=== PATIENT | female | born 1990 | race Caucasian/White ===

== ENCOUNTER 2017-05-15 02:18 | Inpatient (IN) | payer OTHER ==
[~2017-05-15] VITALS: Ht 175.3 cm; Wt 127.7 kg
[2017-05-15] MEDS ORDERED: LACTATED RINGER'S 1000ML 1,000 ML IV PRN (02:46)
[2017-05-15] MEDS ORDERED: LACTATED RINGER'S 1000ML 1,000 ML IV SCH ×2 (02:46→09:19)
--- NOTE | 2017-05-15 03:04 | Progress Note ---
Progress Note Date of Service May 15, 2017. Progress Note Addendum: Pt has no care and therefore GBS status unknown Pt reports allergy to PCN- she repotrs hx hives but no hx of anaphylactic rxn Discussed GBS prophylaxis with Ancef and the risk of 4-10% cross reactivity Pt is wiling to try Ancef
[2017-05-15 03:19] LABS: MEAN CELL VOLUME 93.8 fL (80-100); MEAN CORPUSCULAR HEMOGLOBIN 31.4 pg (25-34); MEAN CORPUSCULAR HGB CONC 33.4 g/dl (32-36); MEAN PLATELET VOLUME 10.9 fL (7.4-10.4); PLATELET COUNT 209 K/uL (130-400); RED BLOOD COUNT 4.05 M/uL (4.2-5.4)
[2017-05-15] MEDS: CEFAZOLIN IV 1,000 MG in DEXTROSE 5% 50ML 50 ML IV PRN ×2 (03:28→10:32)
[2017-05-15 03:44] LABS: ALT/SGPT 53 U/L (12-78); AST/SGOT 30 U/L (15-37); BLOOD UREA NITROGEN 5 mg/dl (7-18); BUN/CREATININE RATIO 8.3 (10-20); CALCIUM 8.2 mg/dl (8.5-10.1); CARBON DIOXIDE 22 mmol/L (21-32); CHLORIDE 108 mmol/L (98-107); CREATININE 0.62 mg/dl (0.60-1.20); GLUCOSE 97 mg/dl (70-99); POTASSIUM 3.7 mmol/L (3.5-5.1); SODIUM 139 mmol/L (136-145)
[2017-05-15 03:47] LABS: ALB/GLOB RATIO 0.7 (0.9-2); ALKALINE PHOSPHATASE 206 U/L (45-117)
[2017-05-15 03:50] VITALS: Ht 175.3 cm; Wt 127.7 kg
[2017-05-15] MEDS ORDERED: FENTANYL 2MCG/ML ROPIV 1.25MG/ML 100ML BAG EPI ONE (04:14)
[2017-05-15] MEDS ORDERED: FENTANYL CITRATE INJ 50 MCG/1 ML 2 ML VIAL ONE (04:14)
[2017-05-15] MEDS ORDERED: BUPIVACAINE 0.25% 30 ML VIAL ONE (04:14)
[2017-05-15] MEDS ORDERED: EpHEDrine SULFATE INJ 50 MG/ML AMP ONE (04:14)
[2017-05-15 04:17] LABS: BENZODIAZEPINE, URINE NEG (NEG); COCAINE,URINE NEG (NEG); PHENCYCLIDINE, URINE NEG (NEG)
[2017-05-15] MEDS ORDERED: LACTATED RINGER'S 1000ML 500 ML IV PRN (05:07)
[2017-05-15] MEDS ORDERED: NALOXONE HCL INJ 1 MG in SODIUM CHLORIDE 0.9% 1000ML 1,000 ML IV PRN (05:07)
[2017-05-15] MEDS ORDERED: NALBUPHINE HCL INJ 10 MG/ML AMP IV PRN (05:15)
[2017-05-15] MEDS ORDERED: FENTANYL 2MCG/ML ROPIV 1.25MG/ML 100ML BAG EPI PRN (05:15)
[2017-05-15] MEDS ORDERED: ONDANSETRON INJ 2 MG/ML 2 ML VIAL IV PRN (05:15)
[2017-05-15] MEDS ORDERED: EpHEDrine SULFATE INJ 50 MG/ML AMP IV PRN (05:15)
[2017-05-15] MEDS ORDERED: DiphenhydrAMINE HCL 50 MG/ML VIAL IV PRN (05:15)
[2017-05-15] MEDS ORDERED: NALOXONE HCL INJ 0.4 MG/1 ML VIAL/CARP IV PRN (05:15)
[2017-05-15] MEDS ORDERED: PROMETHAZINE HCL INJ 6.25 MG in SODIUM CHLORIDE 0.9% 50ML 50 ML IV PRN (05:15)
--- NOTE | 2017-05-15 05:22 | HISTORY & PHYSICAL EXAMINATION ---
DATE OF ADMISSION: 05/15/2017 HISTORY OF PRESENT ILLNESS: The patient is a 26-year-old G2, P1, who presented to the Emergency Room with complaints of rupture of membranes at 12; 00 midnight The patient denies knowing she was ever . She saw her PCP last week for shortness of breath during which she then was found to be . She therefore does not know her last menstrual period or gestation in . When she presented to the Emergency Room today; however, she did complain of greenish clear fluid discharge from the vagina, then was sent to labor and delivery, where on the arrival to labor and delivery, she had no shortness of breath, no chills, no fever. The patient is grossly ruptured with light green fluid, which was suspected to be meconium. On examination, the patient's uterine fundal height is 38 cm. Bedside ultrasound showed cephalic presentation. The placenta appears to be posterior. Speculum exam shows cervix is thick. Digital exam is not performed because the placenta previa cannot be completely ruled out at this moment. The cervix; however, appeared thick with gross pooling of meconium fluid. There was some particulate matter also seen in the meconium fluid. The patient will be sent to ultrasound to evaluate the status of the placenta and after that digital exam will be performed. PAST MEDICAL HISTORY: None. PAST SURGICAL HISTORY: The patient had an appendectomy. SOCIAL HISTORY: The patient denies drug, tobacco or alcohol use. CHART COMPUTER HISTORY: The patient had a vaginal delivery 5 years ago, was uncomplicated. PHYSICAL EXAMINATION: GENERAL: Well-developed, well-nourished white female, in no acute distress. HEART: S1, S2, regular rhythm and rate. LUNGS: Clear to auscultation bilaterally. ABDOMEN: Gravid, fundal height is about 38-39 cm. PELVIC: Gross pooling. IMAGING STUDIES: No digital exam was performed. Bedside ultrasound shows cephalic presentation. Placenta appears to be posterior. ASSESSMENT AND PLAN: , estimated gestational age by fundal height is about 38 weeks. No care. Bedside ultrasound shows cephalic presentation with suspected posterior placenta. The patient has being sent to ultrasound to confirm dates and placenta status. Plan is to admit patient and continue with workup. EFW by miguelina is 8lbs MTDD
[2017-05-15] MEDS ORDERED: OXYTOCIN 30 UNITS/500ML NSS IV ONE (07:05)
--- NOTE | 2017-05-15 07:15 | DIAGNOSTIC IMAGING REPORT ---
LIMITED (US) CLINICAL HISTORY: No care. Fundal ht 39cm . Vaginal fluid. Assess for premature rupture of membranes. COMPARISON STUDY: None. FINDINGS: A full anatomical survey was not performed for this study. There is a single viable intrauterine gestation with a composite ultrasound age of 39 weeks and 0 days based off the biparietal diameter, head circumference, abdominal circumference, and femur length. heart rate was 138 bpm. Amniotic fluid index is 12.5 cm. There is an anterior placenta. Fetus is in a cephalic presentation. No subchorionic hematoma. The cervix is closed and measures 4.2 cm in length. IMPRESSION: 1. Single viable 39 week and 0 day intrauterine gestation demonstrating a heart rate of 138 bpm. 2. Amniotic fluid index is 12.5 cm. 3. Anterior placenta. 4. The cervix is closed and measures 4.2 cm in length. Electronically signed by: Yifan Grayson M.D. 05/15/2017 7:14 AM Dictated Date/Time: 05/15/2017 7:10 AM
[2017-05-15] MEDS ORDERED: MEASLES, MUMPS & RUBELLA VIRUS VIAL SQ. ONE (09:30)
[2017-05-15] MEDS ORDERED: OXYCODONE/ACETAMINOPHEN 5-325 TAB PO PRN (09:30)
[2017-05-15] MEDS ORDERED: HYDROCORTISONE ACETATE 25 MG SUPP PR PRN (09:30)
[2017-05-15] MEDS ORDERED: OXYTOCIN 30 UNITS/500ML NSS IV PRN (09:30)
[2017-05-15] MEDS ORDERED: ACETAMINOPHEN 325 MG TAB PO PRN (09:30)
[2017-05-15] MEDS ORDERED: SUPERCREAM 0.870 % 15GM JAR EXT PRN (09:30)
[2017-05-15] MEDS ORDERED: DIPHTHERIA/TETANUS/PERTUSSIS 0.5 ML SYR/VIAL IM. ONE (09:30)
[2017-05-15] MEDS ORDERED: BENZOCAINE 20% AER SPR 82.5 GM CAN EXT PRN (09:30)
[2017-05-15] MEDS ORDERED: LANOLIN OINT EXT PRN ×2 (09:30)
--- NOTE | 2017-05-15 10:00 | DELIVERY SUMMARY ---
DATE OF OPERATION: 05/15/2017 DATE OF DELIVERY: 05/15/2017 TIME OF DELIVERY OF BABY: 0851 a.m. TIME OF DELIVERY OF PLACENTA: 0907 a.m. DETAILS OF DELIVERY: The patient was found to be fully dilated and desired to push. She pushed for about half an hour. There noted to be abundant amount of dark meconium stained fluid was coming out from the vagina during pushing. The station of the head was descending normally and FHR was category I. There was a tight band of tissue around the hymen and perineal muscles. After verbal consent was obtained and a small 2 cm right medial lateral episiotomy was opened to facilitate delivery of the head. 1% lidocaine was used for local anesthesia. After that the head was delivered without difficulty but the Turtle sign was noted over the perineum. I was unable to deliver anterior shoulder with minimal traction but the posterior shoulder ( the left) was noted to be closer to the posterior perineum. It was was delivered with assisting fingers under the left armpit. Then the anterior shoulder was delivered without difficulty after that. The time elapse was less than 30 seconds. The baby was handed off to the mother where mouth and nose were suctioned. Cord was clamped x2 and cut. The baby was handed off the awaiting resort keeper. The cord blood was obtained. It was 3 vessels cord. Vagina and perineum were checked for lacerations, there was only right medial lateral episiotomy which was opened earlier. It was a second degree. It was confirmed with rectal exam. Excellent sphincter tone was noted and gloves were changed. Episiotomy was repaired with 2-0 Vicryl in running locked fashion, skin in subcuticular fashion. Excellent hemostasis was achieved. The placenta was found to be in the vagina and delivered spontaneously intact and complete. Placenta was examined to be bilobed. There was a 2-sided placenta with defect in the middle. Uterus was explored and found to be empty. Fundus was firm. EBL was 300. Bedside ultrasound was done and confirmed that uterine cavity was empty, with thin 2 mm endometrium and normal myometrium. Procedure was ended. At the end of the procedure, sponge, needle and instrument count was correct x2. The baby was a viable female infant, Apgars 9/9, weight was 4154 grams. No complications happened. I was present during the whole procedure. I attest to the content of the Intraoperative Record and any orders documented therein. Any exceptions are noted below. MTDD
[2017-05-15] MEDS ORDERED: CEFAZOLIN IV 3,000 MG in DEXTROSE 5% 50ML 50 ML IV ONE (10:15)
--- NOTE | 2017-05-15 10:32 | Anesthesia Procedure Note ---
Anesthesia Epidural Removal Nt Date & Time May 15, 2017 at 10:31 Notes Mental Status: alert / awake / arousable, participated in evaluation Nausea / Vomiting: adequately controlled Pain: adequately controlled Airway Patency, RR, SpO2: stable & adequate BP & HR: stable & adequate Hydration State: stable & adequate Neuraxial Anesthesia: was administered Anesthetic Complications: no major complications apparent, pt satisfied with anesthetic care Epidural: removed without complications, with tip intact
[2017-05-15 12:30] VITALS: BP 121/77; PULSE 96; TEMP 36.6; O2SAT 92
[2017-05-15 15:40] VITALS: BP 114/76; PULSE 103; TEMP 37; O2SAT 97
[2017-05-15] MEDS: IBUPROFEN 600 MG TAB PO PRN (19:06)
[2017-05-15 19:15] VITALS: BP 114/75; PULSE 100; TEMP 36.7; O2SAT 96
[2017-05-15] MEDS: DOCUSATE SODIUM 100 MG CAP PO SCH (19:47)
[2017-05-16 00:10] VITALS: BP 107/71; PULSE 85; TEMP 36.7
[2017-05-16] MEDS: IBUPROFEN 600 MG TAB PO PRN (03:26)
[2017-05-16 04:05] VITALS: BP 103/69; PULSE 86; TEMP 36.9
[2017-05-16 06:59] LABS: HEMATOCRIT 31.2 % (37-47)
[2017-05-16 07:33] VITALS: BP 129/77; PULSE 84; TEMP 36.6; O2SAT 97
--- NOTE | 2017-05-16 08:09 | OB/GYN Progress Note ---
SOLID WASTE FACILITY SUPERVISOR Progress Note Date of Service May 16, 2017. Subjective conversation w/ patient, physical exam Ambulation: ambulating normally Voiding: no voiding problems Passing Gas: Yes Diet Tolerance: Regular Diet Lochia: Small Feeding Type: Bottle Feeding Objective Vital Signs Test 05/15/17 00:00 05/15/17 02:45 05/15/17 03:07 05/15/17 07:42 Urine Opiates Screen NEG Urine Methadone, Qualitative NEG Urine Barbiturates NEG Urine Phencyclidine (PCP) Level NEG Ur Amphetamine/Methamphetamine NEG MDMA (Ecstasy) Screen NEG Urine Benzodiazepines Screen NEG Urine Cocaine Metabolite NEG Urine Marijuana (THC) NEG Chlamydia trachomatis RNA Pending Neisseria gonorrhoeae RNA Pending White Blood Count 13.00 Red Blood Count 4.05 Hemoglobin 12.7 Hematocrit 38.0 Mean Corpuscular Volume 93.8 Mean Corpuscular Hemoglobin 31.4 Mean Corpuscular Hemoglobin Concent 33.4 RDW Standard Deviation 47.9 RDW Coefficient of Variation 14.0 Platelet Count 209 Mean Platelet Volume 10.9 Sodium Level 139 Potassium Level 3.7 Chloride Level 108 Carbon Dioxide Level 22 Anion Gap 9.0 Blood Urea Nitrogen 5 Creatinine 0.62 Estimated GFR () 143.2 Estimated GFR (Non- 123.6 BUN/Creatinine Ratio 8.3 Random Glucose 97 Calcium Level 8.2 Total Bilirubin 0.6 Aspartate Amino Transferase (AST) 30 Alanine Aminotransferase (ALT) 53 Alkaline Phosphatase 206 Total Protein 6.1 Albumin 2.5 Globulin 3.6 Albumin/Globulin Ratio 0.7 Rapid Plasma Reagin NONREACTIVE Hepatitis B Surface Antigen NEG HIV (1&2) Ab and P24 Ag, 4th Gener NEG Rubella IgG Antibody IMMUNE Test 05/16/17 06:35 Hemoglobin 10.3 Hematocrit 31.2 Date Time Temp Pulse Resp B/P (MAP) Pulse Ox O2 Delivery O2 Flow Rate FiO2 05/16/17 07:33 36.6 84 16 129/77 (94) 97 Room Air 05/16/17 04:05 36.9 86 16 103/69 (80) Room Air 05/16/17 00:10 Room Air 05/16/17 00:10 36.7 85 18 107/71 (83) Room Air 05/15/17 19:15 36.7 100 20 114/75 (88) 96 05/15/17 15:40 Room Air 05/15/17 15:40 37.0 103 20 114/76 (89) 97 Room Air 05/15/17 12:30 36.6 96 20 121/77 (92) 92 Room Air Physical Exam Abdomen: non tender, soft Fundus: Firm Extremities: non-tender, normal inspection, no pedal edema Laboratory Results Last 24 Hours Test 05/16/17 06:35 Hemoglobin 10.3 g/dL Hematocrit 31.2 % Assessment and Plan Post- Day Number: 1 Continue Routine Care: tent d/c in AM
[2017-05-16] MEDS: PRENATAL VITAMIN TAB PO SCH (09:03)
[2017-05-16] MEDS: DOCUSATE SODIUM 100 MG CAP PO SCH ×2 (09:03→20:21)
[2017-05-16] MEDS: FERROUS SULFATE 325 MG TAB PO SCH (09:03)
[2017-05-16] MEDS ORDERED: NURSING VERBAL MED ORDER ONE ×3 (13:45→20:45)
[2017-05-16] MEDS ORDERED: PANTOprazole SOD 40 MG TAB PO ONE (14:00)
[2017-05-16 15:45] VITALS: BP 127/81; PULSE 89; TEMP 36.5; O2SAT 98
[2017-05-16] MEDS ORDERED: ALUMINUM/MAGNESIUM SUSP 30 ML UDC PO PRN (16:15)
[2017-05-16] MEDS ORDERED: BISACODYL 5 MG TABEC PO SCH (20:00)
[2017-05-16] MEDS: HYDROCORTISONE 1% CR 30 GM TUBE EXT PRN (21:14)
[2017-05-16 23:30] VITALS: BP 125/81; PULSE 90; TEMP 36.9
[2017-05-17 00:51] LABS: CHLAMYDIA TRACH RNA*** NOT DETECTED (NOT DETECTED); GC (NEIS GONORRHOEAE)RNA** NOT DETECTED (NOT DETECTED)
[2017-05-17] MEDS: HYDROCORTISONE 1% CR 30 GM TUBE EXT PRN (03:01)
[2017-05-17 06:41] LABS: HEMATOCRIT 34.4 % (37-47); MEAN CELL VOLUME 95.3 fL (80-100); MEAN CORPUSCULAR HEMOGLOBIN 30.2 pg (25-34); MEAN CORPUSCULAR HGB CONC 31.7 g/dl (32-36); MEAN PLATELET VOLUME 10.8 fL (7.4-10.4); PLATELET COUNT 219 K/uL (130-400); RED BLOOD COUNT 3.61 M/uL (4.2-5.4); WHITE BLOOD COUNT 10.14 K/uL (4.8-10.8)
[2017-05-17] MEDS ORDERED: BISACODYL 10 MG SUPP PR PRN (07:00)
[2017-05-17] MEDS ORDERED: PANTOprazole SOD 40 MG TAB PO SCH (08:00)
[2017-05-17 08:05] VITALS: BP 121/79; PULSE 84; TEMP 36.8
[2017-05-17] MEDS: PRENATAL VITAMIN TAB PO SCH (08:42)
[2017-05-17] MEDS: FERROUS SULFATE 325 MG TAB PO SCH (08:42)
[2017-05-17] MEDS: DOCUSATE SODIUM 100 MG CAP PO SCH (08:42)
--- NOTE | 2017-05-17 09:28 | Discharge Instructions ---
Discharge Instructions Date of Service May 17, 2017. Admission Reason for Admission: LABOR Discharge Discharge Diagnosis / Problem: Vaginal Delivery Discharge Goals Goal(s): Routine recovery after delivery Medications Continue Dispensed Medications: supercream, dermaplast, tucks, lansinoh Activity Recommendations Activity Limitations: per Instructions/Follow-up section . Instructions / Follow-Up Instructions / Follow-Up ACTIVITY RECOMMENDATIONS: * Gradual return to full activity over the next 2-3 weeks. * No lifting - nothing heavier than baby over the next 2-3 weeks. * Do not engage in vigorous exercise, sexual activity or sports until cleared by your physician. * Do not drive or operate any motorized equipment until cleared by your physician. * You may shower/bathe daily. BREAST CARE: If you are not breast feeding: * Wear a supportive bra 24 hours a day for one to two weeks. * Avoid stimulating your breasts and nipples as much as possible during the first few weeks after delivery. * When taking a shower, have the warm water hit your back, not breasts. * When your breasts feel full, apply ice packs. Usually three to four times a day helps ease the discomfort. * Take a mild pain medication (Tylenol/Motrin) when you are uncomfortable. If breast feeding: * Use breast milk to lubricate nipples. Lansinoh cream may be used for sore nipples. You do not need to remove cream prior to breast feeding. If using a different brand of cream, check the label for directions regarding removal of cream prior to nursing. * Wear a supportive bra. * If having problems with breasts or breast feeding, call a medical record consultant or your health care provider. EPISIOTOMY CARE: After delivery, if you have an episiotomy (stitches), the following steps will ease discomfort and aid healing. * For the first 24 hours after delivery, place ice packs next to your episiotomy to help reduce swelling. * After the first 24 hour-period, sitz baths, either portable or in the tub, are suggested. A shower with a shower arm sprayed over the episiotomy may be comforting. * Priscila care should be done after each voiding and bowel movement. Squirt warm water from a plastic bottle over the perineum (region of the body between the anus and urinary opening) and pat dry. * Use Dermoplast to ease discomfort. Shake container. [place] directly over the episiotomy. * Place a Tucks on a clean sanitary pad next to your episiotomy. OVER THE COUNTER MEDICATION: * For discomfort or pain, you may use Acetaminophen (Tylenol), Ibuprofen (Advil ), or Naproxen (Aleve) following the package directions. * For constipation you may use Colace following the package directions. SPECIAL CARE INSTRUCTIONS: When you are discharged from the hospital, it is important for you to follow the instructions listed below: * During the first week at home, you should be able to care for yourself and your baby. In addition, the usual light household activities are encouraged. * Limit your activities to the way you feel. Do not try to clean the house or move furniture. Be sensible. * If you actively engage in sports and have done so up until the time of your delivery, you may resume these activities as soon as you feel able. This may take up to one month or even longer. Use good judgment. * Continue to take your vitamins for at least six weeks after the of your baby. * Your diet need not be limited unless you were on a special diet before your delivery. Breast-feeding mothers need around 2500 calories per day and at least 64-80 ounces of fluid per day (8 to 10 glasses). * You should eat foods from the four major food groups. Crash diets or fad diets are to be avoided. Eating lean meats, fresh fruits and vegetables, low-fat dairy products, high fiber foods and a regular exercise program, will help you get back to your pre- weight without putting your health at risk. * Constipation is sometimes a problem after delivery. Take a mild laxative as needed. If breast feeding, Milk of Magnesia is acceptable to use. You may use a suppository or Fleets enema if no episiotomy. * A daily shower or tub bath is suggested. Be sure to thoroughly and gently dry the perineum. * A bloody vaginal discharge will usually continue until around four weeks post . A small amount of bleeding may continue for as long as six weeks. Vaginal discharge changes from the bright red bleeding after delivery to pink then brownish and finally yellowish-pink before becoming white and disappearing. * Bleeding may increase with activity. Your first period may come in 4-8 weeks. If you are breast feeding, your period may be delayed even longer. * Spurgeon (sex) can begin whenever both you and your partner feel comfortable and do not have any form of genital infection. It is recommended that you wait until after your return appointment and discuss with your physician. If you have questions, please talk to your health care practitioner. A condom should be used to prevent infection and . * Foreplay, gentle intercourse and lubrication is very important the first several times to prevent pain. A water-based lubricant such as K-Y jelly or Astroglide may be used. * Tampons may be used six weeks after delivery. * Douching should be avoided for 6 weeks after delivery. * If you have RH negative blood and your baby is RH positive, you will receive RHOGAM by injection prior to discharge. The nurse will give you a card to keep with you that has the date and place that you received RHOGAM after delivery. * During your care, you had a Rubella screen done to check for the presence of rubella antibodies in your blood. If your test was negative, you will receive a Rubella vaccine prior to discharge. This vaccine may cause a fever, soreness at the injection site and flu-like symptoms. If these symptoms persist, notify your health care practitioner. is not advised for three months after a Rubella vaccine. There is a higher chance of having a baby with defects if conceived within three months of getting the vaccine. * If you were discharged 24 hours from delivery or before 48 hours: Visiting nurses will come to your home 48 hours after discharge to assess you and your baby. The visiting nurse will meet with you while you are in the hospital to arrange a time and get directions to your home. * Verbalizes understanding of car seat law as reviewed with patient nursing. * Car Seat hand-out given and reviewed with patient by nursing. * Shaken baby information reviewed with patient by nursing. Call you doctor if: * Heavy bleeding (saturating several pads an hour) or passing clots the size of your fist. * A fever >101 degrees F (38.3 degrees C) on two occasions four hours apart and/or chills. * Unusual pain in the pelvic or vaginal areas. * "Baby Blues" lasting longer than two weeks. If you have any questions or concerns, call your health care practitioner at . FOLLOW-UP VISIT: * Please call the office at to schedule a 6 week examination. It is important you keep this appointment. * It is important for you to make arrangements for either yearly or twice yearly check-ups thereafter. Current Hospital Diet Patient's current hospital diet: Regular OB Diet Discharge Diet Recommended Diet: Regular OB Diet Pending Studies Studies pending at discharge: no Medical Emergencies . Who to Call and When: Medical Emergencies: If at any time you feel your situation is an emergency, please call 911 immediately. . Non-Emergent Contact Non-Emergency issues call your: Primary Care Provider, Business Process Consultant . . "Provider Documentation" section prepared by Chalo Christensen. . VTE Core Measure Inpt VTE Proph given/why not?: Treatment not indicated
--- NOTE | 2017-05-17 09:29 | OB/GYN Progress Note ---
DIET TECHNICIAN REGISTERED Progress Note Date of Service May 17, 2017. Subjective conversation w/ patient, physical exam Ambulation: ambulating normally Voiding: no voiding problems Passing Gas: Yes Diet Tolerance: Regular Diet Lochia: Small Pain: 09/19 Notes: Doing well, no concerns. Pain well controlled. Lochia minimal. Ambulating without difficulty. Would like to go home today. Objective Vital Signs Date Time Temp Pulse Resp B/P (MAP) Pulse Ox O2 Delivery O2 Flow Rate FiO2 05/16/17 23:30 36.9 90 18 125/81 (96) 05/16/17 23:30 Room Air 05/16/17 15:45 Room Air 05/16/17 15:45 36.5 89 18 127/81 (96) 98 Room Air Physical Exam General Appearance: WELL-APPEARING Respiratory/Chest: chest non-tender, lungs clear Cardiovascular: regular rate, rhythm Abdomen: normal bowel sounds, soft Fundus: Firm Extremities: normal range of motion, non-tender, no calf tenderness Laboratory Results Last 24 Hours Test 05/17/17 06:04 White Blood Count 10.14 K/uL Red Blood Count 3.61 M/uL Hemoglobin 10.9 g/dL Hematocrit 34.4 % Mean Corpuscular Volume 95.3 fL Mean Corpuscular Hemoglobin 30.2 pg Mean Corpuscular Hemoglobin Concent 31.7 g/dl RDW Standard Deviation 50.1 fL RDW Coefficient of Variation 14.6 % Platelet Count 219 K/uL Mean Platelet Volume 10.8 fL Assessment and Plan Post- Day Number: 2 Continue Routine Care: -D/C home today -F/U in 6 weeks.
[2017-05-17 14:36] VITALS: BP_DIAS 79; PULSE 84; TEMP 36.8
== END 2017-05-17 15:05 | disposition home or self-care (01) | DRG 775 ==
LOC: C.LD 02:18 → C.OPB 02:18 → C.LD 02:52 → C.OBG 12:29
PROVIDERS: ADMIT Obstetrics & Gynecology; ATTEND Obstetrics & Gynecology
PROC: 0W8NXZZ Division of Female Perineum, External Approach (ICD-10-PCS; principal; 2017-05-15)
PROC: 10E0XZZ Delivery of Products of Conception, External Approach (ICD-10-PCS; principal; 2017-05-15)
DX: O42.02 Full-term premature rupture of membranes, onset of labor within 24 hours of rupture (principal); Z68.41 Body mass index [BMI] 40.0-44.9, adult; Z37.0 Single live birth; O26.893 Other specified pregnancy related conditions, third trimester; O66.0 Obstructed labor due to shoulder dystocia; O76 Abnormality in fetal heart rate and rhythm complicating labor and delivery; O99.214 Obesity complicating childbirth; E66.9 Obesity, unspecified; O77.0 Labor and delivery complicated by meconium in amniotic fluid; Z3A.38 38 weeks gestation of pregnancy

== ENCOUNTER 2017-05-24 15:18 | Observation (INO) | payer OTHER ==
[~2017-05-24] VITALS: Ht 175.3 cm; Wt 112.0 kg
--- NOTE | 2017-05-24 15:40 | EMERGENCY ROOM VISIT NOTE ---
History First contact with patient: 15:23 Chief Complaint: ABDOMINAL PAIN Stated Complaint: GALLBLADDER, CHEST PAIN Nursing Triage Summary: Abd pain. N/v/d "I have been having problems with my gallbladder. I just got done throwing up." per pt. History of Present Illness The patient is a 26 year old female who presents to the Emergency Room with complaints of intermittent epigastric pain that started this morning. The patient reports a history of gallstones. This was diagnosed during her . She just gave to a healthy baby on 05/15. The patient has also had 4 episodes of emesis this morning. No coffee-ground emesis. She describes the pain as sharp in the epigastric region radiating to her back. It is worsened with eating. She denies any changes in her stools. No fever or chills. She denies any urinary symptoms. There were no consultations with her vaginal delivery. She is not nursing. Review of Systems 10 system review performed and negative unless noted in HPI or below Past Medical/Surgical History Medical Problems: (1) No care in current (2) History of appendectomy Family History Diabetes Social History Smoking Status: Never Smoker Smokeless Tobacco Use: No Alcohol Use: none Drug Use: none Current/Historical Medications Scheduled Omeprazole (Omeprazole), 20 MG PO DAILY Scheduled PRN Epinephrine (Epipen), 0.3 MG IM UD PRN for ALLERGIC REACTION Physical Exam Vital Signs Date Time Temp Pulse Resp B/P (MAP) Pulse Ox O2 Delivery O2 Flow Rate FiO2 05/24/17 17:13 69 16 125/76 97 Room Air 05/24/17 15:20 36.8 84 16 128/85 98 Room Air Physical Exam VITALS: Vitals are noted on the nurse's note and reviewed by myself. Vital signs stable. GENERAL: 26-year-old female, in obvious discomfort, tearful, SKIN: The skin was without rashes, erythema, edema, or bruising. HEAD: Normocephalic atraumatic. MOUTH: Mucous membranes dry NECK: No JVD. HEART: Regular rate and rhythm without murmurs gallops or rubs. LUNGS: Clear to auscultation bilaterally without wheezes, rales or rhonchi. No accessory muscle use. ABDOMEN: Bowel sounds present, but hypoactive. Soft, tenderness in the epigastric region without any guarding or rebound tenderness appreciated. MUSCULOSKELETAL: No muscle atrophy, erythema, or edema noted. Strength 5/5 throughout. NEURO: Patient was alert and oriented to person place and time. Normal sensation to touch. No focal neurological deficits. Medical Decision & Procedures ER Provider Diagnostic Interpretation: BILIARY ULTRASOUND CLINICAL HISTORY: epigastric pain hx gallstones COMPARISON STUDY: No previous studies for comparison. FINDINGS: The pancreas appears sonographically normal. The liver appears sonographically normal. There are multiple gallstones present. There is no gallbladder wall thickening. There is no pericholecystic fluid. The common bile duct is mildly dilated measuring 8 mm. There is no right-sided hydronephrosis. IMPRESSION: Cholelithiasis. Mild dilatation of the common bile duct which measures 8 mm. Electronically signed by: Tre Mcpherson M.D. 05/24/2017 4:50 PM Dictated Date/Time: 05/24/2017 4:48 PM The status of this report is Signed. Draft = Not yet reviewed or approved by Radiologist. Signed = Reviewed and approved by Radiologist. Laboratory Results 05/24/17 16:10 Red Blood Count 4.38, Mean Corpuscular Volume 92.5, Mean Corpuscular Hemoglobin 30.8, Mean Corpuscular Hemoglobin Concent 33.3, Mean Platelet Volume 10.0, Neutrophils (%) (Auto) 79.6, Lymphocytes (%) (Auto) 14.5, Monocytes (%) (Auto) 3.7, Eosinophils (%) (Auto) 1.6, Basophils (%) (Auto) 0.2, Neutrophils # (Auto) 8.34, Lymphocytes # (Auto) 1.52, Monocytes # (Auto) 0.39, Eosinophils # (Auto) 0.17, Basophils # (Auto) 0.02 05/24/17 16:10 Test 05/24/17 16:10 White Blood Count 10.48 K/uL (4.8-10.8) Red Blood Count 4.38 M/uL (4.2-5.4) Hemoglobin 13.5 g/dL (12.0-16.0) Hematocrit 40.5 % (37-47) Mean Corpuscular Volume 92.5 fL (80-100) Mean Corpuscular Hemoglobin 30.8 pg (25-34) Mean Corpuscular Hemoglobin Concent 33.3 g/dl (32-36) Platelet Count 355 K/uL (130-400) Mean Platelet Volume 10.0 fL (7.4-10.4) Neutrophils (%) (Auto) 79.6 % Lymphocytes (%) (Auto) 14.5 % Monocytes (%) (Auto) 3.7 % Eosinophils (%) (Auto) 1.6 % Basophils (%) (Auto) 0.2 % Neutrophils # (Auto) 8.34 K/uL (1.4-6.5) Lymphocytes # (Auto) 1.52 K/uL (1.2-3.4) Monocytes # (Auto) 0.39 K/uL (0.11-0.59) Eosinophils # (Auto) 0.17 K/uL (0-0.5) Basophils # (Auto) 0.02 K/uL (0-0.2) RDW Standard Deviation 46.0 fL (36.4-46.3) RDW Coefficient of Variation 13.5 % (11.5-14.5) Immature Granulocyte % (Auto) 0.4 % Immature Granulocyte # (Auto) 0.04 K/uL (0.00-0.02) Anion Gap 8.0 mmol/L (3-11) Est Creatinine Clear Calc Drug Dose 150.4 ml/min Estimated GFR () 126.6 Estimated GFR (Non- 109.2 BUN/Creatinine Ratio 17.7 (10-20) Calcium Level 9.4 mg/dl (8.5-10.1) Total Bilirubin 0.8 mg/dl (0.2-1) Aspartate Amino Transf (AST/SGOT) 89 U/L (15-37) Alanine Aminotransferase (ALT/SGPT) 85 U/L (12-78) Alkaline Phosphatase 238 U/L (45-117) Total Protein 7.0 gm/dl (6.4-8.2) Albumin 3.6 gm/dl (3.4-5.0) Globulin 3.4 gm/dl (2.5-4.0) Albumin/Globulin Ratio 1.0 (0.9-2) Lipase 191 U/L (73-393) Medications Administered Medications (Trade) Dose Ordered Sig/Kathleen Route Start Time Stop Time Status Last Admin Dose Admin Morphine Sulfate (MoRPHine SULFATE INJ) 4 mg Q1H PRN IV 05/24/17 15:45 9/28/17 15:44 05/24/17 15:55 4 MG Ondansetron HCl (Zofran Inj) 4 mg Q2H PRN IV 05/24/17 15:45 06/23/17 15:44 05/24/17 15:55 4 MG Sodium Chloride 1,000 ml @ 999 mls/hr Q1H1M ONCE IV 05/24/17 15:45 05/24/17 16:45 DC 05/24/17 15:56 999 MLS/HR Sodium Chloride 1,000 ml @ 999 mls/hr Q1H1M ONCE IV 05/24/17 15:45 05/24/17 16:45 DC 05/24/17 15:56 999 MLS/HR ED Course Patient was seen and examined Vital signs including blood pressure were reviewed medications list was verified with patient Labs were obtained, and a saline lock was established The patient was given morphine 4 mg IV and Zofran 4 mg IV. She was hydrated with 2 L of normal saline bolus. Imaging was performed and reviewed Upon reevaluation, the patient was resting comfortably in bed. She said that her symptoms were better. We discussed the results of her workup. She voiced understanding. The case was discussed with the [facility] hospitalist group, who agreed to admit the patient for further workup and treatment Medical Decision DIFFERENTIAL DIAGNOSIS: Gastroenteritis, Hepatitis, cholecystitis, cholangitis, biliary colic, pancreatitis, appendicitis, inguinal hernia, nephrolithiasis, inflammatory bowel disease, mesenteric adenitis, peptic ulcer disease, GERD, gastritis, pancreatitis,, bowel obstruction, splenic infarct, diverticulitis, mesenteric ischemia, metabolic, peritonitis, among others. This patient is a 26-year-old female, state that presents the emergency department with intermittent sharp, stabbing epigastric pain with nausea and vomiting. Known history of gallstones. Choledocholithiasis was high on my differential. An ultrasound revealed a dilated common bile duct at 8 mm. LFTs were also abnormal in particular the alkaline phosphatase. There is a high possibility of choledocholithiasis. There was no pericholecystic fluid. The patient is afebrile. I did not suspect cholecystitis. The case was discussed with the hospitalist team. They agreed to admit the patient for further workup with GI and surgery. This chart was completed in part utilizing [employer] Voice Recognition software. Attempts were made to minimize the grammatical errors, random word insertions, pronoun errors and incomplete sentences. Any formal questions or concerns about the content, text or information contained within the body of this dictation should be directly addressed to the provider for clarification. Medication Reconcilliation Current Medication List: was personally reviewed by me Blood Pressure Screening Patient's blood pressure: Normal blood pressure Impression Primary Impression: Cholelithiasis Departure Information Referrals Emily Regalado D.ONoris (PCP) Patient Instructions My [facility]
[2017-05-24] MEDS ORDERED: MoRPHine SULFATE 4 MG/ML 1 ML CARP\\VIAL IV PRN (15:45)
[2017-05-24] MEDS ORDERED: SODIUM CHLORIDE 0.9% 1000ML 1,000 ML IV ONE ×2 (15:45)
[2017-05-24] MEDS ORDERED: ONDANSETRON INJ 2 MG/ML 2 ML VIAL IV PRN ×2 (15:45→18:15)
[2017-05-24] MEDS ORDERED: OMEP20TA PO (16:21)
[2017-05-24] MEDS ORDERED: EPP3/2 IM (16:21)
[2017-05-24 16:23] LABS: BASO % 0.2 %; BASO ABS # 0.02 K/uL (0-0.2); COMPLETE YES; EOS % 1.6 %; HEMATOCRIT 40.5 % (37-47); IG% 0.4 %; LYMPH % 14.5 %; LYMPH ABS # 1.52 K/uL (1.2-3.4); MEAN CELL VOLUME 92.5 fL (80-100); MEAN CORPUSCULAR HEMOGLOBIN 30.8 pg (25-34); MEAN CORPUSCULAR HGB CONC 33.3 g/dl (32-36); MONO % 3.7 %; NEUT % 79.6 %; PLATELET COUNT 355 K/uL (130-400); RED BLOOD COUNT 4.38 M/uL (4.2-5.4); WHITE BLOOD COUNT 10.48 K/uL (4.8-10.8)
[2017-05-24 16:46] LABS: BUN/CREATININE RATIO 17.7 (10-20); CALCIUM 9.4 mg/dl (8.5-10.1); CREATININE 0.75 mg/dl (0.60-1.20); POTASSIUM 3.8 mmol/L (3.5-5.1)
--- NOTE | 2017-05-24 16:51 | DIAGNOSTIC IMAGING REPORT ---
BILIARY ULTRASOUND CLINICAL HISTORY: epigastric pain hx gallstones COMPARISON STUDY: No previous studies for comparison. FINDINGS: The pancreas appears sonographically normal. The liver appears sonographically normal. There are multiple gallstones present. There is no gallbladder wall thickening. There is no pericholecystic fluid. The common bile duct is mildly dilated measuring 8 mm. There is no right-sided hydronephrosis. IMPRESSION: Cholelithiasis. Mild dilatation of the common bile duct which measures 8 mm. Electronically signed by: Tre Mcpherson M.D. 05/24/2017 4:50 PM Dictated Date/Time: 05/24/2017 4:48 PM
--- NOTE | 2017-05-24 18:10 | Surgery Consultation ---
Consultation Date of Consultation: May 24, 2017. Attending Physician: History of Present Illness The patient is a 26 year old female who presents to the Emergency Room with complaints of intermittent epigastric pain that started this morning. The patient reports a history of gallstones. This was diagnosed during her . She just gave to a healthy baby on 05/15. The patient has also had 4 episodes of emesis this morning. No coffee-ground emesis. She describes the pain as sharp in the epigastric region radiating to her back. It is worsened with eating. She denies any changes in her stools. No fever or chills. She denies any urinary symptoms. There were no consultations with her vaginal delivery. She is not nursing. I saw pt at ER, pt feels better now, but pt is still have some RUQ pain, pt denies fever, no diarrhea, Social History Smoking Status: Never Smoker Smokeless Tobacco Use: No Alcohol Use: occasionally Drug Use: none Allergies Coded Allergies: BEE STING (Verified Allergy, Severe, ANAPHYLAXIS, 05/15/17) per patient Penicillin V (Verified Allergy, Intermediate, HIVES/SWELLING, 05/15/17) Home Medications Scheduled Omeprazole (Omeprazole), 20 MG PO DAILY Scheduled PRN Epinephrine (Epipen), 0.3 MG IM UD PRN for ALLERGIC REACTION Current Inpatient Medications Current Inpatient Medications Medications (Trade) Dose Ordered Sig/Kathleen Route Start Time Stop Time Status Last Admin Dose Admin Morphine Sulfate (MoRPHine SULFATE INJ) 4 mg Q1H PRN IV 05/24/17 15:45 06/07/17 15:44 05/24/17 15:55 4 MG Ondansetron HCl (Zofran Inj) 4 mg Q2H PRN IV 05/24/17 15:45 06/23/17 15:44 05/24/17 15:55 4 MG Review of Systems Constitutional: No fever, No chills, No sweats, No weight loss, No weakness, No fatigue, No problem reported Eyes: No worsening of vision, No eye pain, No redness, No discharge, No diplopia, No problem reported ENT: No hearing loss, No unusual epistaxis, No nasal symptoms, No sore throat, No tinnitus, No dental problems, No trouble swallowing, No problem reported Respiratory: No cough, No sputum, No wheezing, No shortness of breath, No dyspnea on exertion, No dyspnea at rest, No hemoptysis, No problem reported Cardiovascular: No chest pain, No orthopnea, No PND, No edema, No claudication , No palpitations, No problem reported Abdomen: + pain, + nausea, + vomiting Musculoskeletal: No joint pain, No muscle pain, No swelling, No calf pain, No problem reported Genitourinary - Female: No dysuria, No urinary frequency, No urinary urgency, No urinary incontinence, No urinary retention, No hematuria, No dysmenorrhea, No menorrhagia, No metrorrhagia, No rash, No vaginal bleeding, No vaginal discharge, No vaginal itching, No vulvodynia, No , No problem reported Neurologic: No memory loss, No paralysis, No weakness, No numbness/tingling, No vertigo, No balance problems, No problem reported Psychiatric: No depression symptoms, No anhedonism, No anxiety, No insomnia, No substance abuse, No problem reported Endocrine: No fatigue, No excessive thirst, No excessive urination, No problem reported Hematologic / Lymphatic: No abnormal bleeding/bruising, No clotting problems, No swollen lymph nodes, No night sweats, No problem reported Physical Exam Date Time Temp Pulse Resp B/P (MAP) Pulse Ox O2 Delivery O2 Flow Rate FiO2 05/24/17 17:13 69 16 125/76 97 Room Air 05/24/17 15:20 36.8 84 16 128/85 98 Room Air General Appearance: WD/WN, no apparent distress Head: normocephalic Eyes: normal inspection ENT: normal ENT inspection Neck: supple, no JVD Respiratory/Chest: chest non-tender, lungs clear, normal breath sounds Cardiovascular: regular rate, rhythm, no edema, no gallop, no JVD, no murmur Abdomen/GI: normal bowel sounds, soft, no organomegaly, + tenderness ( tenerness at RUQ, no rebound pain, ) Extremities/Musculoskelatal: normal inspection, no calf tenderness, normal capillary refill Neurologic/Psych: no motor/sensory deficits, alert, normal mood/affect Skin: normal color, warm/dry, no rash Laboratory Results Last 24 Hours Test 05/24/17 16:10 White Blood Count 10.48 K/uL Red Blood Count 4.38 M/uL Hemoglobin 13.5 g/dL Hematocrit 40.5 % Mean Corpuscular Volume 92.5 fL Mean Corpuscular Hemoglobin 30.8 pg Mean Corpuscular Hemoglobin Concent 33.3 g/dl Platelet Count 355 K/uL Mean Platelet Volume 10.0 fL Neutrophils (%) (Auto) 79.6 % Lymphocytes (%) (Auto) 14.5 % Monocytes (%) (Auto) 3.7 % Eosinophils (%) (Auto) 1.6 % Basophils (%) (Auto) 0.2 % Neutrophils # (Auto) 8.34 K/uL Lymphocytes # (Auto) 1.52 K/uL Monocytes # (Auto) 0.39 K/uL Eosinophils # (Auto) 0.17 K/uL Basophils # (Auto) 0.02 K/uL RDW Standard Deviation 46.0 fL RDW Coefficient of Variation 13.5 % Immature Granulocyte % (Auto) 0.4 % Immature Granulocyte # (Auto) 0.04 K/uL Sodium Level 141 mmol/L Potassium Level 3.8 mmol/L Chloride Level 107 mmol/L Carbon Dioxide Level 26 mmol/L Anion Gap 8.0 mmol/L Blood Urea Nitrogen 13 mg/dl Creatinine 0.75 mg/dl Est Creatinine Clear Calc Drug Dose 150.4 ml/min Estimated GFR () 126.6 Estimated GFR (Non- 109.2 BUN/Creatinine Ratio 17.7 Random Glucose 113 mg/dl Calcium Level 9.4 mg/dl Total Bilirubin 0.8 mg/dl Aspartate Amino Transf (AST/SGOT) 89 U/L Alanine Aminotransferase (ALT/SGPT) 85 U/L Alkaline Phosphatase 238 U/L Total Protein 7.0 gm/dl Albumin 3.6 gm/dl Globulin 3.4 gm/dl Albumin/Globulin Ratio 1.0 Lipase 191 U/L Assessment & Plan Assessment: pt is a 26 yaetr old female who presents with RUQ pain, pt had U/S- IMPRESSION: Cholelithiasis. Mild dilatation of the common bile duct which measures 8 mm. IMP : acute cholecystitis, cholelithiasis Plan, hospitalist will admit to hospital, IV fluid, IV antibiotic, control pain I recommend to do laparoscopic cholecystectomy, possible open or cholangiogram tomorrow, D/W benefits, risks and alternatives of the procedure with pt and her Mom, the risks- infection, bleeding, injury CBD, Bowel, may need ERCP. they understood and agree with the plan, , I answered all questions, repeat labs in am, CBC, CMP, lipase, thanks, D/W hospitalist, and ER attending,
[2017-05-24] MEDS ORDERED: MoRPHine SULFATE 2 MG/ML CARP IV PRN (18:15)
[2017-05-24] MEDS ORDERED: EPINEPHRINE ADULT AUTO-INJECT 0.3 MG SYR IM PRN (18:30)
--- NOTE | 2017-05-24 18:33 | History and Physical ---
History & Physical Date of Service May 24, 2017. History & Physical This is a 26 year old female with a PMH of gallstones, recently gave here at [facility] about 9 days prior - presents with epigastric tenderness which radiates to her back. Ultrasound done in the ED suggests gallstones with dilatation of the CBD. Patient is not . Pain currently under control. VITALS: Last Vital Signs Documentation Date Time Temp Pulse Resp B/P (MAP) Pulse Ox O2 Delivery O2 Flow Rate FiO2 05/24/17 17:13 69 16 125/76 97 Room Air 05/24/17 15:20 36.8 GEN: no acute distress CVS: RRR, +S1, S2 LUNGS: CTA b/l, no wheezing ABD: soft, +tenderness to palpation in the epigastric and RUQ, normoactive bowel sounds EXT: no edema Acute Cholecystitis Dilatation of CBD appreciate general surgery input - plan for surgery in AM clear liquid diet tonight and NPO after midnight IVFs morphine PRN for pain Cipro + Flagyl appreciate gastroenterology input - stat MRCP possible ERCP in AM
--- NOTE | 2017-05-24 18:46 | EMERGENCY ROOM VISIT NOTE ---
ED Visit Note First contact with patient: 15:23 The patient was seen and examined with Misty Jhaveri PA-C. I agree with the history, physical and findings. Please see the note for disposition and details. The patient's diagnostic results are concerning for choledocholithiasis. Additional evaluation will be necessary. Internal medicine consulted.
[2017-05-24] MEDS ORDERED: CIPROFLOXACIN CONSULT ACTIVE PRN ×2 (19:00)
--- NOTE | 2017-05-24 19:56 | History and Physical ---
History & Physical Date & Time of Service: May 24, 2017 at 19:56 Chief Complaint: Gallbladder, Chest Pain Primary Care Physician: Emily Regalado D.O. History of Present Illness Source: patient This is a 26yo female with presents with intermittent epigastric pain that started on Sunday and reoccurred today. Patient is post- after delivering a healthy baby 9 days ago. Was diagnosed with gallstones during and had an appointment for further evaluation with [facility] surgery tomorrow. Last Sunday, patient experienced intermittent epigastric pain with radiation to back with associated nausea and vomiting. Symptoms resolved by Sunday. This morning, patient endorses more severe, sharp epigastric pain with radiation to back. Pain made worse with eating. Had 4 episodes of vomiting prior to arrival to ER. No coffee ground emesis. Pain is currently under control. Denies any fever, chills, hematemesis, jaundice , CP, SOB, urinary symptoms or diarrhea. Patient is not . Surgical history includes appendectomy. Social History Smoking Status: Never Smoker Smokeless Tobacco Use: No Alcohol Use: occasionally Drug Use: none Allergies Coded Allergies: BEE STING (Verified Allergy, Severe, ANAPHYLAXIS, 05/15/17) per patient Penicillin V (Verified Allergy, Intermediate, HIVES/SWELLING, 05/15/17) Home Medications Scheduled Omeprazole (Omeprazole), 20 MG PO DAILY Scheduled PRN Epinephrine (Epipen), 0.3 MG IM UD PRN for ALLERGIC REACTION Review of Systems Ten systems reviewed and negative except as noted in the HPI. Physical Exam Vital Signs Date Time Temp Pulse Resp B/P (MAP) Pulse Ox O2 Delivery O2 Flow Rate FiO2 05/24/17 18:52 65 18 121/72 97 Room Air 05/24/17 17:13 69 16 125/76 97 Room Air 05/24/17 15:20 36.8 84 16 128/85 98 Room Air General Appearance: + mild distress Head: normocephalic, atraumatic Eyes: normal inspection ENT: hearing grossly normal Neck: supple, no adenopathy, trachea midline Respiratory/Chest: chest non-tender, lungs clear, normal breath sounds, no respiratory distress, no accessory muscle use Cardiovascular: regular rate, rhythm, no murmur, normal peripheral pulses Abdomen/GI: normal bowel sounds, soft, no organomegaly, + tenderness (TTP of epigastric region and RUQ) Back: normal inspection Extremities/Musculoskelatal: normal inspection, no calf tenderness, normal capillary refill, no pedal edema Neurologic/Psych: alert, normal mood/affect, oriented x 3 Skin: normal color (No jaundice observed), warm/dry, no rash Diagnostics Laboratory Results Results Past 24 Hours Test 05/24/17 16:10 05/24/17 19:53 Range/Units White Blood Count 10.48 4.8-10.8 K/uL Red Blood Count 4.38 4.2-5.4 M/uL Hemoglobin 13.5 12.0-16.0 g/dL Hematocrit 40.5 37-47 % Mean Corpuscular Volume 92.5 80-100 fL Mean Corpuscular Hemoglobin 30.8 25-34 pg Mean Corpuscular Hemoglobin Concent 33.3 32-36 g/dl Platelet Count 355 130-400 K/uL Mean Platelet Volume 10.0 7.4-10.4 fL Neutrophils (%) (Auto) 79.6 % Lymphocytes (%) (Auto) 14.5 % Monocytes (%) (Auto) 3.7 % Eosinophils (%) (Auto) 1.6 % Basophils (%) (Auto) 0.2 % Neutrophils # (Auto) 8.34 1.4-6.5 K/uL Lymphocytes # (Auto) 1.52 1.2-3.4 K/uL Monocytes # (Auto) 0.39 0.11-0.59 K/uL Eosinophils # (Auto) 0.17 0-0.5 K/uL Basophils # (Auto) 0.02 0-0.2 K/uL RDW Standard Deviation 46.0 36.4-46.3 fL RDW Coefficient of Variation 13.5 11.5-14.5 % Immature Granulocyte % (Auto) 0.4 % Immature Granulocyte # (Auto) 0.04 0.00-0.02 K/uL Sodium Level 141 136-145 mmol/L Potassium Level 3.8 3.5-5.1 mmol/L Chloride Level 107 98-107 mmol/L Carbon Dioxide Level 26 21-32 mmol/L Anion Gap 8.0 3-11 mmol/L Blood Urea Nitrogen 13 7-18 mg/dl Creatinine 0.75 0.60-1.20 mg/dl Est Creatinine Clear Calc Drug Dose 150.4 ml/min Estimated GFR () 126.6 Estimated GFR (Non- 109.2 BUN/Creatinine Ratio 17.7 10-20 Random Glucose 113 70-99 mg/dl Calcium Level 9.4 8.5-10.1 mg/dl Total Bilirubin 0.8 0.2-1 mg/dl Aspartate Amino Transf (AST/SGOT) 89 15-37 U/L Alanine Aminotransferase (ALT/SGPT) 85 12-78 U/L Alkaline Phosphatase 238 45-117 U/L Total Protein 7.0 6.4-8.2 gm/dl Albumin 3.6 3.4-5.0 gm/dl Globulin 3.4 2.5-4.0 gm/dl Albumin/Globulin Ratio 1.0 0.9-2 Lipase 191 73-393 U/L Diagnostic Radiology Gall bladder ultrasound: IMPRESSION: Cholelithiasis. Mild dilatation of the common bile duct which measures 8 mm. Impression Assessment and Plan This is a 26yo female with presents with intermittent epigastric pain that started on Sunday and reoccurred today. Acute Cholecystitis with dilatation of CBD: -Consulted general surgery, planning for surgery in AM -Consulted GI, recommended stat MRCP, possible ERCP tomorrow -Clear liquid diet tonight, NPO after midnight -Cipro and Flagyl -Pain control -IVFs DVT Ppx: SCDs Code status: FULL PCP: [facility] Dispo: Medsurg overnight. Reassess after surgery tomorrow. Level of Care Med/Surg Resuscitation Status FULL RESUSCITATION VTE Prophylaxis VTE Risk Assessment Done? Y/N: Yes Risk Level: Low Given or contraindicated: SCD's
[2017-05-24 20:15] LABS: URINE APPEARANCE TURBID (CLEAR); URINE BILIRUBIN NEG (NEG); URINE COLOR YELLOW; URINE NITRITE NEG (NEG); UROBILINOGEN NEG (NEG)
[2017-05-24 20:17] LABS: MANUAL MICROSCOPIC REQUIRED? NO; REVIEW REQ? YES
--- NOTE | 2017-05-24 20:59 | DIAGNOSTIC IMAGING REPORT ---
MRCP CLINICAL HISTORY: Cholelithiasis with dilated CBD COMPARISON STUDY: Biliary ultrasound dated 05/24/2017 FINDINGS: There are in numerable gallstones present. There is no evidence of intrahepatic biliary ductal dilatation. On this MRI study, the common bile duct measures 4 mm. This is within normal limits. There is no pancreatic ductal dilatation. No ductal filling defects are visualized. IMPRESSION: 1. Innumerable gallstones 2. No evidence of ductal dilatation. This examination fails to confirm the recently described mild common bile duct dilatation. 3. No common bile duct calculi identified 4. Normal pancreatic duct Electronically signed by: Tre Mcpherson M.D. 05/24/2017 8:57 PM Dictated Date/Time: 05/24/2017 8:54 PM
[2017-05-24 21:05] VITALS: BP 141/101; PULSE 81; TEMP 36.8; O2SAT 96
[2017-05-24 21:14] VITALS: BP 126/81; PULSE 72
[2017-05-24] MEDS: SODIUM CHLORIDE 0.9% 1000ML 1,000 ML IV SCH (22:03)
[2017-05-24] MEDS: METRONIDAZOLE / NSS 500 MG in PREMIXED NSS 100 ML IV SCH (22:03)
[2017-05-24] MEDS: CIPROFLOXACIN / D5W 400 MG in PREMIXED IN D5W 200 ML IV SCH (22:03)
[2017-05-24 22:24] VITALS: BP 126/81; PULSE 72; TEMP 36.8; O2SAT 96; Ht 175.3 cm; Wt 112.0 kg
[2017-05-24 23:57] VITALS: BP 97/67; PULSE 63; TEMP 36.7; O2SAT 97
[2017-05-25] MEDS: METRONIDAZOLE / NSS 500 MG in PREMIXED NSS 100 ML IV SCH ×2 (05:05→14:24)
[2017-05-25 05:45] LABS: HEMATOCRIT 36.9 % (37-47); MEAN CELL VOLUME 95.8 fL (80-100); MEAN CORPUSCULAR HEMOGLOBIN 30.1 pg (25-34); MEAN CORPUSCULAR HGB CONC 31.4 g/dl (32-36); MEAN PLATELET VOLUME 10.1 fL (7.4-10.4); PLATELET COUNT 324 K/uL (130-400); RED BLOOD COUNT 3.85 M/uL (4.2-5.4)
[2017-05-25 05:54] LABS: PROTHROMBIN TIME (PATIENT) 11.1 SECONDS (9.0-12.0)
[2017-05-25 06:41] LABS: BUN/CREATININE RATIO 14.3 (10-20); CALCIUM 8.3 mg/dl (8.5-10.1); CREATININE 0.65 mg/dl (0.60-1.20); POTASSIUM 3.9 mmol/L (3.5-5.1)
[2017-05-25] MEDS: SODIUM CHLORIDE 0.9% 1000ML 1,000 ML IV SCH (07:19)
[2017-05-25 08:02] VITALS: BP 108/72; PULSE 71; TEMP 37; O2SAT 95
--- NOTE | 2017-05-25 08:43 | Surgery Progress Note ---
Surgery Progress Note Date of Service May 25, 2017. Subjective + feeling well pt feels better, less RUQ pain, no nausea, no vomiting, Objective Vital Signs: Date Time Temp Pulse Resp B/P (MAP) Pulse Ox O2 Delivery O2 Flow Rate FiO2 05/25/17 08:02 37.0 71 18 108/72 (84) 95 Room Air 05/25/17 07:15 Room Air 05/24/17 23:57 36.7 63 16 97/67 (77) 97 Room Air 05/24/17 23:30 Room Air 05/24/17 22:24 36.8 72 18 126/81 96 Room Air 05/24/17 21:14 72 126/81 (96) 05/24/17 21:05 36.8 81 18 141/101 (114) 96 Room Air 05/24/17 20:14 67 18 123/70 98 05/24/17 18:52 65 18 121/72 97 Room Air 05/24/17 17:13 69 16 125/76 97 Room Air 05/24/17 15:20 36.8 84 16 128/85 98 Room Air General Appearance: WD/WN, no apparent distress Head: normocephalic Neck: supple, no JVD Respiratory/Chest: chest non-tender, lungs clear, normal breath sounds Cardiovascular: regular rate, rhythm, no edema, no gallop, no JVD Abdomen: soft, + tenderness (tenderness at RUQ, ) Extremities: normal range of motion, non-tender, normal inspection Laboratory Results: Results Past 24 Hours Test 05/24/17 16:10 05/24/17 18:40 05/25/17 05:13 Range/Units White Blood Count 10.48 6.50 4.8-10.8 K/uL Red Blood Count 4.38 3.85 4.2-5.4 M/uL Hemoglobin 13.5 11.6 12.0-16.0 g/dL Hematocrit 40.5 36.9 37-47 % Mean Corpuscular Volume 92.5 95.8 80-100 fL Mean Corpuscular Hemoglobin 30.8 30.1 25-34 pg Mean Corpuscular Hemoglobin Concent 33.3 31.4 32-36 g/dl Platelet Count 355 324 130-400 K/uL Mean Platelet Volume 10.0 10.1 7.4-10.4 fL Neutrophils (%) (Auto) 79.6 % Lymphocytes (%) (Auto) 14.5 % Monocytes (%) (Auto) 3.7 % Eosinophils (%) (Auto) 1.6 % Basophils (%) (Auto) 0.2 % Neutrophils # (Auto) 8.34 1.4-6.5 K/uL Lymphocytes # (Auto) 1.52 1.2-3.4 K/uL Monocytes # (Auto) 0.39 0.11-0.59 K/uL Eosinophils # (Auto) 0.17 0-0.5 K/uL Basophils # (Auto) 0.02 0-0.2 K/uL RDW Standard Deviation 46.0 47.8 36.4-46.3 fL RDW Coefficient of Variation 13.5 13.8 11.5-14.5 % Immature Granulocyte % (Auto) 0.4 % Immature Granulocyte # (Auto) 0.04 0.00-0.02 K/uL Sodium Level 141 143 136-145 mmol/L Potassium Level 3.8 3.9 3.5-5.1 mmol/L Chloride Level 107 111 98-107 mmol/L Carbon Dioxide Level 26 27 21-32 mmol/L Anion Gap 8.0 5.0 3-11 mmol/L Blood Urea Nitrogen 13 9 7-18 mg/dl Creatinine 0.75 0.65 0.60-1.20 mg/dl Est Creatinine Clear Calc Drug Dose 150.4 173.5 ml/min Estimated GFR () 126.6 141.0 Estimated GFR (Non- 109.2 121.7 BUN/Creatinine Ratio 17.7 14.3 10-20 Random Glucose 113 82 70-99 mg/dl Calcium Level 9.4 8.3 8.5-10.1 mg/dl Total Bilirubin 0.8 0.5 0.2-1 mg/dl Aspartate Amino Transf (AST/SGOT) 89 37 15-37 U/L Alanine Aminotransferase (ALT/SGPT) 85 67 12-78 U/L Alkaline Phosphatase 238 183 45-117 U/L Total Protein 7.0 5.5 6.4-8.2 gm/dl Albumin 3.6 2.8 3.4-5.0 gm/dl Globulin 3.4 2.7 2.5-4.0 gm/dl Albumin/Globulin Ratio 1.0 1.0 0.9-2 Lipase 191 120 73-393 U/L Urine Color YELLOW Urine Appearance TURBID CLEAR Urine pH 8.0 4.5-7.5 Urine Specific [place] 1.020 1.000-1.030 Urine Protein NEG NEG Urine Glucose (UA) NEG NEG Urine Ketones NEG NEG Urine Occult Blood 3+ NEG Urine Nitrite NEG NEG Urine Bilirubin NEG NEG Urine Urobilinogen NEG NEG Urine Leukocyte Esterase MODERATE NEG Urine WBC (Auto) >30 0-5 /hpf Urine RBC (Auto) 5-10 0-4 /hpf Urine Hyaline Casts (Auto) 1-5 0-5 /lpf Urine Epithelial Cells (Auto) 10-20 0-5 /lpf Urine Bacteria (Auto) NEG NEG Urine Pathogenic Casts 0 /lpf Prothrombin Time 11.1 9.0-12.0 SECONDS Prothromb Time International Ratio 1.0 0.9-1.1 Assessment & Plan IMP: acte cholecystitis, cholelithiasis, MRCP normal CBD, normal bilirubin, I called DR. Chairez, the ERCP is cancelled, pt will have laparoscopic cholecystectomy, possible open or cholangiogram, D/W benefits, risks and alternatives of angel procedure, angel risks- infection, bleeding, injury CBD, bowel, may need ERCP, incisional hernia, pt understood, she signed consent, I answered all questions,
[2017-05-25] MEDS: CIPROFLOXACIN / D5W 400 MG in PREMIXED IN D5W 200 ML IV SCH (09:00)
--- NOTE | 2017-05-25 09:44 | Progress Note ---
Progress Note Date of Service May 25, 2017. (Blessing Alegre CRNP) Progress Note GI quick note: Pt is a 26 y/o female w fairly unremarkable past medical hx, also 10 days post , who presented to ED w c/o n/v, abd pain. Upon evaluation was noted to have elevated LFTs: normal Tbili, AST/ALT in 80s, AP 200s. She had gallbladder u /s which showed gallstone and CBD dilation 8mm. Surgery consulted for possible cholecystectomy. GI consulted for possible ERCP for suspected CBD stones. She underwent MRCP imaging yesterday and this showed negative CBD stones and no findings of CBD dilation. Her LFTs are normalizing today. She is going to have lap cholecystectomy this AM by Dr. Mcmillan. When I walked in pt's room to assess her, she was actually about to be transported down to OR. VS stable, AM labs reviewed. I discussed MRCP findings w pt and will cancel ERCP plans for today. Though I did mention to her that should she has findings of CBD stone during the cholecystectomy IOC, we may need to perform ERCP. She expressed understanding. GI will watch peripherally, pls call if new questions/concerns arise. (Blessing Alegre CRNP) Patient not available during rounds today. She underwent an MRCP which appears to be negative for evidence of gallstones within the common bile duct. Recommendations Cholecystectomy per Gen. surgery Please call with any questions or concerns (Hoang Chairez, DO)
[2017-05-25] MEDS ORDERED: PROMETHAZINE HCL INJ 12.5 MG in SODIUM CHLORIDE 0.9% 50ML 50 ML IV PRN (10:30)
[2017-05-25] MEDS ORDERED: ATROPINE SULFATE 0.1 MG/ML 5ML SYR IV PRN (10:30)
[2017-05-25] MEDS ORDERED: ONDANSETRON INJ 2 MG/ML 2 ML VIAL IV PRN (10:30)
[2017-05-25] MEDS ORDERED: EpHEDrine SULFATE INJ 50 MG/ML AMP IV PRN (10:30)
[2017-05-25] MEDS ORDERED: HYDROmorphone INJ 1 MG/ML SYR IV PRN (10:30)
[2017-05-25] MEDS ORDERED: SCOPOLAMINE 1.5 MG TDSY TD SCH (10:30)
[2017-05-25] MEDS ORDERED: SCOPOLAMINE 1.5 MG TDSY TD ONE (10:32)
--- NOTE | 2017-05-25 10:51 | History & Physical Bridge Note ---
H&P Re-Evaluation Bridge Note: I have examined the patient, reviewed the History & Physical and in the interval since the performance of the History & Physical I have noted the following changes of clinical significance: No changes noted
[2017-05-25] MEDS ORDERED: CLINDAMYCIN 600 MG/54 ML D5W IV ONE (10:54)
[2017-05-25] MEDS ORDERED: BACITRACIN OINT 15 GM TUBE ONE (11:07)
[2017-05-25] MEDS ORDERED: BUPIVACAINE 0.5 % 5 MG/1 ML MPF 30ML VIAL ONE (11:07)
[2017-05-25] MEDS ORDERED: LIDOCAINE HCL 1% 20 ML VIAL ONE (11:07)
[2017-05-25] MEDS ORDERED: DEXAMETHASONE SOD INJ 4 MG/ML VIAL ONE (11:14)
[2017-05-25] MEDS ORDERED: ROCURONIUM BROMIDE 10 MG/ML 5 ML VIAL IV ONE (11:14)
[2017-05-25] MEDS ORDERED: MIDAZOLAM HCL 1 MG/ML 2ML VIAL ONE (11:14)
[2017-05-25] MEDS ORDERED: ONDANSETRON INJ 2 MG/ML 2 ML VIAL ONE ×2 (11:14→13:14)
[2017-05-25] MEDS ORDERED: PROPOFOL IV EMULSION 10 MG/ML 20 ML VIAL IV ONE (11:14)
[2017-05-25] MEDS ORDERED: LIDOCAINE HCL 2% 2 ML VIAL (20MG/ML) ONE (11:14)
[2017-05-25] MEDS ORDERED: FENTANYL CITRATE INJ 50 MCG/1 ML 2 ML VIAL ONE (11:14)
[2017-05-25] MEDS ORDERED: HYDROmorphone INJ 2 MG/ML SYR/VIAL ONE (12:03)
[2017-05-25] MEDS ORDERED: GLYCOPYRROLATE INJ 0.2 MG/ML VIAL ONE ×2 (12:51→12:54)
[2017-05-25] MEDS ORDERED: NEOSTIGMINE METHYLSULFATE 5 MG/5 ML SYR ONE (12:51)
[2017-05-25] MEDS ORDERED: KETOROLAC TROMETHAMINE 30 MG/ML VIAL ONE (13:10)
--- NOTE | 2017-05-25 13:12 | [facility] Post Operative Brief Note ---
Immediate Operative Summary Operative Date May 25, 2017. Pre-Operative Diagnosis Acute cholecystitis and cholelithiasis Post-Operative Diagnosis Acute cholecystitis and cholelithiasis Procedure(s) Performed Laparoscopic Cholecystectomy Surgeon Dr. Mcmillan Glassworker Surgeon(s) commercial hvac technician Estimated Blood Loss 10ml Findings acute cholecystitis, Fluids (cc crystalloids) 1000ml Specimens A: Gallbladder and contents Drains none Anesthesia general Complication(s) None Disposition Recovery Room / PACU
--- NOTE | 2017-05-25 13:19 | Surgery Progress Note ---
Surgery Progress Note Date of Service May 25, 2017. Objective Vital Signs: Date Time Temp Pulse Resp B/P (MAP) Pulse Ox O2 Delivery O2 Flow Rate FiO2 05/25/17 08:02 37.0 71 18 108/72 (84) 95 Room Air 05/25/17 07:15 Room Air 05/24/17 23:57 36.7 63 16 97/67 (77) 97 Room Air 05/24/17 23:30 Room Air 05/24/17 22:24 36.8 72 18 126/81 96 Room Air 05/24/17 21:14 72 126/81 (96) 05/24/17 21:05 36.8 81 18 141/101 (114) 96 Room Air 05/24/17 20:14 67 18 123/70 98 05/24/17 18:52 65 18 121/72 97 Room Air 05/24/17 17:13 69 16 125/76 97 Room Air 05/24/17 15:20 36.8 84 16 128/85 98 Room Air Laboratory Results: Results Past 24 Hours Test 05/24/17 16:10 05/24/17 18:40 05/25/17 05:13 05/25/17 11:46 Range/Units White Blood Count 10.48 6.50 4.8-10.8 K/uL Red Blood Count 4.38 3.85 4.2-5.4 M/uL Hemoglobin 13.5 11.6 12.0-16.0 g/dL Hematocrit 40.5 36.9 37-47 % Mean Corpuscular Volume 92.5 95.8 80-100 fL Mean Corpuscular Hemoglobin 30.8 30.1 25-34 pg Mean Corpuscular Hemoglobin Concent 33.3 31.4 32-36 g/dl Platelet Count 355 324 130-400 K/uL Mean Platelet Volume 10.0 10.1 7.4-10.4 fL Neutrophils (%) (Auto) 79.6 % Lymphocytes (%) (Auto) 14.5 % Monocytes (%) (Auto) 3.7 % Eosinophils (%) (Auto) 1.6 % Basophils (%) (Auto) 0.2 % Neutrophils # (Auto) 8.34 1.4-6.5 K/uL Lymphocytes # (Auto) 1.52 1.2-3.4 K/uL Monocytes # (Auto) 0.39 0.11-0.59 K/uL Eosinophils # (Auto) 0.17 0-0.5 K/uL Basophils # (Auto) 0.02 0-0.2 K/uL RDW Standard Deviation 46.0 47.8 36.4-46.3 fL RDW Coefficient of Variation 13.5 13.8 11.5-14.5 % Immature Granulocyte % (Auto) 0.4 % Immature Granulocyte # (Auto) 0.04 0.00-0.02 K/uL Sodium Level 141 143 136-145 mmol/L Potassium Level 3.8 3.9 3.5-5.1 mmol/L Chloride Level 107 111 98-107 mmol/L Carbon Dioxide Level 26 27 21-32 mmol/L Anion Gap 8.0 5.0 3-11 mmol/L Blood Urea Nitrogen 13 9 7-18 mg/dl Creatinine 0.75 0.65 0.60-1.20 mg/dl Est Creatinine Clear Calc Drug Dose 150.4 173.5 ml/min Estimated GFR () 126.6 141.0 Estimated GFR (Non- 109.2 121.7 BUN/Creatinine Ratio 17.7 14.3 10-20 Random Glucose 113 82 70-99 mg/dl Calcium Level 9.4 8.3 8.5-10.1 mg/dl Total Bilirubin 0.8 0.5 0.2-1 mg/dl Aspartate Amino Transf (AST/SGOT) 89 37 15-37 U/L Alanine Aminotransferase (ALT/SGPT) 85 67 12-78 U/L Alkaline Phosphatase 238 183 45-117 U/L Total Protein 7.0 5.5 6.4-8.2 gm/dl Albumin 3.6 2.8 3.4-5.0 gm/dl Globulin 3.4 2.7 2.5-4.0 gm/dl Albumin/Globulin Ratio 1.0 1.0 0.9-2 Lipase 191 120 73-393 U/L Urine Color YELLOW Urine Appearance TURBID CLEAR Urine pH 8.0 4.5-7.5 Urine Specific [place] 1.020 1.000-1.030 Urine Protein NEG NEG Urine Glucose (UA) NEG NEG Urine Ketones NEG NEG Urine Occult Blood 3+ NEG Urine Nitrite NEG NEG Urine Bilirubin NEG NEG Urine Urobilinogen NEG NEG Urine Leukocyte Esterase MODERATE NEG Urine WBC (Auto) >30 0-5 /hpf Urine RBC (Auto) 5-10 0-4 /hpf Urine Hyaline Casts (Auto) 1-5 0-5 /lpf Urine Epithelial Cells (Auto) 10-20 0-5 /lpf Urine Bacteria (Auto) NEG NEG Urine Pathogenic Casts 0 /lpf Prothrombin Time 11.1 9.0-12.0 SECONDS Prothromb Time International Ratio 1.0 0.9-1.1 Bedside Urine Test NEG NEG Assessment & Plan IMP: acte cholecystitis, cholelithiasis, MRCP normal CBD, normal bilirubin, I called DR. Chairez, the ERCP is cancelled, pt will have laparoscopic cholecystectomy, possible open or cholangiogram, D/W benefits, risks and alternatives of angel procedure, angel risks- infection, bleeding, injury CBD, bowel, may need ERCP, incisional hernia, pt understood, she signed consent, I answered all questions, 05/25/2017 S/P lap [place] pt can be discharged home to day if she meets discharge creteria keep the dressing on for 4 days, she can take a shower on 05/29/2017, no heavy lifting > 20 Lbs for 4 weeks, F/U me 1 week, IMP: acte cholecystitis, cholelithiasis, MRCP normal CBD, normal bilirubin, I called DR. Chairez, the ERCP is cancelled, pt will have laparoscopic cholecystectomy, possible open or cholangiogram, D/W benefits, risks and alternatives of angel procedure, angel risks- infection, bleeding, injury CBD, bowel, may need ERCP, incisional hernia, pt understood, she signed consent, I answered all questions,
[2017-05-25] MEDS: FENTANYL CITRATE INJ 50 MCG/1 ML 2 ML VIAL IV PRN ×2 (13:34→13:39)
--- NOTE | 2017-05-25 13:38 | Anesthesiology Progress Note ---
Anesthesia Post Op Note Date & Time May 25, 2017 at 13:38 Vital Signs Pain Intensity: 3 Vital Signs Past 12 Hours Date Time Temp Pulse Resp B/P (MAP) Pulse Ox O2 Delivery O2 Flow Rate FiO2 05/25/17 13:15 36.2 55 16 128/84 95 Oxymask 10 05/25/17 08:02 37.0 71 18 108/72 (84) 95 Room Air 05/25/17 07:15 Room Air Notes Mental Status: alert / awake / arousable, participated in evaluation Pt Amnestic to Procedure: Yes Nausea / Vomiting: adequately controlled Pain: adequately controlled Airway Patency, RR, SpO2: stable & adequate BP & HR: stable & adequate Hydration State: stable & adequate Anesthetic Complications: no major complications apparent
--- NOTE | 2017-05-25 13:55 | OPERATIVE REPORT ---
DATE OF OPERATION: 05/25/2017 PREOPERATIVE DIAGNOSIS: Acute cholecystitis, cholelithiasis. POSTOPERATIVE DIAGNOSIS: Same. PROCEDURE: Laparoscopic cholecystectomy. SURGEON: Dr. Clemente Mcmillan. ANESTHESIA: General. ESTIMATED BLOOD LOSS: About 10 mL. FINDINGS: Acute cholecystitis. COMPLICATIONS: None. INDICATIONS FOR THE PROCEDURE: This is a 26-year-old female who presented right upper quadrant pain. The patient had ultrasound showed acute cholecystitis with gallstones. The patient will be required to do laparoscopic cholecystectomy, possible open, possible cholangiogram. I did talk to the patient about the benefit and risk, alternate procedure. I indicated the risks may include but not limited such as bleeding, infection, injury to common bile duct, injury to bowel, may need ERCP, incisional hernia. The patient understands. She signed informed consent and I answered all questions. DETAILS OF PROCEDURE: We brought the patient to the OR, put the patient in the supine position. The patient received SCD on bilateral legs to prevent DVT. Also, the patient received 600 mg of clindamycin IV for prophylactic antibiotic. The patient received general anesthesia without difficulty. The abdomen was prepped and draped in routine sterile fashion. After time out, I injected 1% lidocaine mixed with 0.5% Marcaine just above the umbilical. Then I made a small incision just above umbilical, opened fascia and opened peritoneum under direct vision. I put a Comfort trocar in, connected to CO2 to create pneumoperitoneum. Flow rate is 6 liter per minute. Pressure not more than 14 mmHg. Once we get a nice pneumoperitoneum, we put another 3.5 mm trocar on the right upper quadrant. Once all trocars were in, I put a grasper in and also we put a 10 mm camera in. Under direct vision we put all grasper and then we used the camera to take look, shows normal findings on the stomach, small bowel. However, the gallbladder showing acute cholecystitis with gallbladder wall edema, thickening and inflammation. Then we put the grasper to hold the base of the gallbladder, put direction to the diaphragm and put another grasper in to hold the pouch of the gallbladder, put latter to expose the triangle of [place]. The cystic duct was identified and mobilized. Then I put two 5 mm metal clips on the proximal cystic duct, 1 on the distal cystic duct. I used scissor to transection the cystic duct. Cystic artery was identified and mobilized. I put two 5 mm metal clips on the proximal cystic artery, 1 on the distal cystic artery. Then I used scissor to transection the cystic artery. Then I used Bovie to take down the gallbladder from the liver bed without difficulty. Rechecked no active bleeding, no bile leak. Then we removed the gallbladder through the catch bag, then we reinserted Comfort trocar in connected to CO2 to create pneumoperitoneum again looked around the abdomen. No active bleeding, no bile leak from the liver bed. Then we removed all trocar under direct vision. No active bleeding from trocar sites. The pneumoperitoneum was released then I closed the umbilical incision, fascial layer by using #1 Vicryl [id number] x2, closed subcutaneous layer by using 2-0 Vicryl interrupted and closed skin by using 4-0 Vicryl continuous running, closed another 3.5 mm trocar site skin only by using 4-0 Vicryl. Then we put the dressing on. The patient tolerated the procedure well. All the instrument, needle and sponge count correct x2 at the end of case. The patient transferred to recovery room in stable condition. Gallbladder specimen sent to pathology. After the procedure, I did talk to the patient about the OR finding and procedure we did. She understands. Also, gave them the postop care instruction. She understands. I attest to the content of the Intraoperative Record and any orders documented therein. Any exceptions are noted below. BALDEV
[2017-05-25 14:15] VITALS: BP 102/69; PULSE 58; TEMP 36.9; O2SAT 97
[2017-05-25 14:45] VITALS: BP 118/68; PULSE 68
[2017-05-25] MEDS ORDERED: IBUPROFEN 200 MG TAB PO STA (15:10)
--- NOTE | 2017-05-25 15:14 | Discharge Instructions ---
Discharge Instructions Date of Service May 25, 2017. Admission Reason for Admission: Cholelithiasis Discharge Discharge Diagnosis / Problem: same Discharge Goals Goal(s): Decrease discomfort, Improve function Activity Recommendations Activity Limitations: as noted below No heavy lifting over 20 pounds for 4 weeks No strenuous activity until cleared by surgeon Walking and light activity is encouraged No submerging incisions underwater for 2 weeks or until healed (no bathing, swimming, or hot tubs) No driving while taking narcotic pain medication or until you are pain free . Instructions / Follow-Up Instructions / Follow-Up Leave dressings on for 4 days and then you may shower, sponge bath and wash hair in meantime Leave steri strips on incisions for 7 days, they may fall off on their own that is okay Follow-up with Dr. Mcmillan in 1-2 weeks, please call office at [phone] to make an appointment Current Hospital Diet Patient's current hospital diet: Clear Liquid Diet Discharge Diet Recommended Diet: Regular Diet Procedures Procedures Performed: Laparoscopic Cholecystectomy Pending Studies Studies pending at discharge: yes List of pending studies: gallbladder pathology- will be reviewed at follow-up visit Medical Emergencies . Who to Call and When: Medical Emergencies: If at any time you feel your situation is an emergency, please call 911 immediately. . Non-Emergent Contact Non-Emergency issues call your: Primary Care Provider, Surgeon Call Non-Emergent contact if: you have a fever, temperature is above 101.5, your pain is not controlled, your pain is worsening, your pain is unusual for you, wound has increased drainage, wound has increased redness, wound has increased pain . "Provider Documentation" section prepared by Martha Babin. . VTE Core Measure Inpt VTE Proph given/why not?: SCD's [place] Drug Monitoring Program Search Results: patient reviewed within database, no issues identified
[2017-05-25 15:22] VITALS: BP 116/74; O2SAT 97
[2017-05-25] MEDS ORDERED: CHECK SCOPOLAMINE PATCH PLACEMENT SCH (16:00)
[2017-05-25 16:07] VITALS: O2SAT 97
--- NOTE | 2017-05-25 17:13 | Progress Note ---
Subjective Date of Service: May 25, 2017. Subjective Pt evaluation today including: conversation w/ patient, physical exam, lab review, review of studies, review of inpatient medication list Saw/examined the patient in room 300 She had her surgery, lap [place], earlier today; she feels good, no pain, drinking gatorade without issues No fevers/chills, pain controlled, eager to go home Problem List Medical Problems: (1) Cholelithiasis Status: Acute Review of Systems Constitutional: No fever, No chills Respiratory: No shortness of breath Cardiac: No chest pain Abdomen: No pain (resolved), No nausea, No vomiting Heme: No abnormal bleeding/bruising Medications Current Inpatient Medications Medications (Trade) Dose Ordered Sig/Kathleen Route Start Time Stop Time Status Last Admin Dose Admin Ondansetron HCl (Zofran Inj) 4 mg Q6H PRN IV 05/24/17 18:15 06/23/17 18:14 Sodium Chloride 1,000 ml @ 100 mls/hr Q10H IV 05/24/17 21:00 06/23/17 20:59 05/25/17 07:19 100 MLS/HR Ciprofloxacin (Consult) 1 ea UD PRN N/A 05/24/17 19:00 06/23/17 18:59 Morphine Sulfate (MoRPHine SULFATE INJ) 2 mg Q4 PRN IV 05/24/17 18:15 06/07/17 18:14 Epinephrine (Epipen) 0.3 mg UD PRN IM 05/24/17 18:30 06/23/17 18:29 Ciprofloxacin/ Dextrose 400 mg/ Prmx 200 ml @ 100 mls/hr Q12H IV 05/24/17 21:00 06/03/17 20:59 05/24/17 22:03 100 MLS/HR Metronidazole 500 mg/Prmx 100 ml @ 100 mls/hr Q8H IV 05/24/17 21:00 06/03/17 20:59 05/25/17 14:24 100 MLS/HR Miscellaneous (Remove Transderm-Scop Patch) 1.5 ea Q48H N/A 05/28/17 10:30 06/27/17 10:29 Miscellaneous Information (Check Scopolamine Patch Placement) 1 ea QS N/A 05/25/17 16:00 06/24/17 15:59 05/25/17 15:37 1 EA Objective Vital Signs Date Time Temp Pulse Resp B/P (MAP) Pulse Ox O2 Delivery O2 Flow Rate FiO2 05/25/17 16:07 97 Room Air 05/25/17 15:22 116/74 (88) 97 Nasal Cannula 2.0 05/25/17 14:45 68 18 118/68 (85) 05/25/17 14:15 36.9 58 18 102/69 (80) 97 Nasal Cannula 3.0 05/25/17 14:15 97 Nasal Cannula 3.0 05/25/17 14:00 36.5 112/73 05/25/17 13:46 36.5 113/73 05/25/17 13:45 51 05/25/17 13:45 50 16 94 05/25/17 13:41 116/82 05/25/17 13:40 52 15 95 05/25/17 13:40 53 15 05/25/17 13:36 122/78 05/25/17 13:35 66 15 95 05/25/17 13:35 63 15 05/25/17 13:32 Nasal Cannula 3 05/25/17 13:31 124/79 05/25/17 13:30 55 17 96 05/25/17 13:30 54 17 05/25/17 13:26 120/75 05/25/17 13:25 50 15 05/25/17 13:25 50 15 95 05/25/17 13:21 122/72 05/25/17 13:20 60 20 05/25/17 13:20 59 20 95 05/25/17 13:19 128/84 05/25/17 13:15 36.2 55 16 128/84 95 Oxymask 10 05/25/17 08:02 37.0 71 18 108/72 (84) 95 Room Air 05/25/17 07:15 Room Air 05/24/17 23:57 36.7 63 16 97/67 (77) 97 Room Air 05/24/17 23:30 Room Air 05/24/17 22:24 36.8 72 18 126/81 96 Room Air 05/24/17 21:14 72 126/81 (96) 05/24/17 21:05 36.8 81 18 141/101 (114) 96 Room Air 05/24/17 20:14 67 18 123/70 98 05/24/17 18:52 65 18 121/72 97 Room Air 05/24/17 17:13 69 16 125/76 97 Room Air Physical Exam General Appearance: no apparent distress, + obese Respiratory/Chest: no respiratory distress, no accessory muscle use Abdomen: normal bowel sounds, non tender, soft Extremities: normal inspection, no pedal edema Neurologic/Psychiatric: no motor/sensory deficits, alert, normal mood/affect Laboratory Results Last 24 Hours Test 05/24/17 18:40 05/25/17 05:13 05/25/17 11:46 Urine Color YELLOW Urine Appearance TURBID Urine pH 8.0 Urine Specific [place] 1.020 Urine Protein NEG Urine Glucose (UA) NEG Urine Ketones NEG Urine Occult Blood 3+ Urine Nitrite NEG Urine Bilirubin NEG Urine Urobilinogen NEG Urine Leukocyte Esterase MODERATE Urine WBC (Auto) >30 /hpf Urine RBC (Auto) 5-10 /hpf Urine Hyaline Casts (Auto) 1-5 /lpf Urine Epithelial Cells (Auto) 10-20 /lpf Urine Bacteria (Auto) NEG Urine Pathogenic Casts /lpf White Blood Count 6.50 K/uL Red Blood Count 3.85 M/uL Hemoglobin 11.6 g/dL Hematocrit 36.9 % Mean Corpuscular Volume 95.8 fL Mean Corpuscular Hemoglobin 30.1 pg Mean Corpuscular Hemoglobin Concent 31.4 g/dl RDW Standard Deviation 47.8 fL RDW Coefficient of Variation 13.8 % Platelet Count 324 K/uL Mean Platelet Volume 10.1 fL Prothrombin Time 11.1 SECONDS Prothromb Time International Ratio 1.0 Sodium Level 143 mmol/L Potassium Level 3.9 mmol/L Chloride Level 111 mmol/L Carbon Dioxide Level 27 mmol/L Anion Gap 5.0 mmol/L Blood Urea Nitrogen 9 mg/dl Creatinine 0.65 mg/dl Est Creatinine Clear Calc Drug Dose 173.5 ml/min Estimated GFR () 141.0 Estimated GFR (Non- 121.7 BUN/Creatinine Ratio 14.3 Random Glucose 82 mg/dl Calcium Level 8.3 mg/dl Total Bilirubin 0.5 mg/dl Aspartate Amino Transf (AST/SGOT) 37 U/L Alanine Aminotransferase (ALT/SGPT) 67 U/L Alkaline Phosphatase 183 U/L Total Protein 5.5 gm/dl Albumin 2.8 gm/dl Globulin 2.7 gm/dl Albumin/Globulin Ratio 1.0 Lipase 120 U/L Bedside Urine Test NEG Assessment and Plan This is a 26 year old female with a PMH of gallstones, recently gave here at [facility] about 9 days prior - presents with acute cholecystitis Acute Cholecystitis s/p lap [place] doing well, POD #0 no problems/issues to note today tolerating gatorade clear liquids as per general surgery plan to d/c home if tolerating clears MRCP showed no CBD dilatation FULL CODE
--- NOTE | 2017-05-25 17:17 | Discharge Instructions ---
Discharge Instructions Date of Service May 25, 2017. Admission Reason for Admission: Cholelithiasis Discharge Discharge Diagnosis / Problem: Acute Cholecystitis s/p Laparascopic cholecystectomy Discharge Goals Goal(s): Decrease discomfort, Improve function, Diagnostic testing, Therapeutic intervention Activity Recommendations Activity Limitations: resume your previous activity . Instructions / Follow-Up Instructions / Follow-Up Please follow-up with Dr. Regalado on Sunday, May 30 at 12:45PM Activity Recommendations Activity Limitations: as noted below No heavy lifting over 20 pounds for 4 weeks No strenuous activity until cleared by surgeon Walking and light activity is encouraged No submerging incisions underwater for 2 weeks or until healed (no bathing, swimming, or hot tubs) No driving while taking narcotic pain medication or until you are pain free . Instructions / Follow-Up Instructions / Follow-Up Leave dressings on for 4 days and then you may shower, sponge bath and wash hair in meantime Leave steri strips on incisions for 7 days, they may fall off on their own that is okay Follow-up with Dr. Mcmillan in 1-2 weeks, please call office at [phone] to make an appointment Current Hospital Diet Patient's current hospital diet: Clear Liquid Diet Discharge Diet Recommended Diet: Clear Liquid Diet (advance as tolerated) Procedures Procedures Performed: Laparoscopic Cholecystectomy Pending Studies Studies pending at discharge: no Medical Emergencies . Who to Call and When: Medical Emergencies: If at any time you feel your situation is an emergency, please call 911 immediately. . Non-Emergent Contact Non-Emergency issues call your: Primary Care Provider . . "Provider Documentation" section prepared by Veronica Grigsby. . VTE Core Measure Inpt VTE Proph given/why not?: SCD's
--- NOTE | 2017-05-25 17:20 | Discharge Summary ---
Discharge Summary Date of Service May 25, 2017. Discharge Summary Admission Date: May 24, 2017 at 20:18 Discharge Date: May 25, 2017 Discharge Disposition: Home Principal Diagnosis: Acute Cholecystectomy s/p Lap [place] Medication Reconciliation Continued Medications: Epinephrine (Epipen) 0.3 Mg/0.3 Ml Inj 0.3 MG IM UD PRN for ALLERGIC REACTION, BOX Omeprazole (Omeprazole) 20 Mg Tab 20 MG PO DAILY, TAB Admission Information HPI (per Admitting provider): This is a 26yo female with presents with intermittent epigastric pain that started on Sunday and reoccurred today. Patient is post- after delivering a healthy baby 9 days ago. Was diagnosed with gallstones during and had an appointment for further evaluation with [facility] surgery tomorrow. Last Sunday, patient experienced intermittent epigastric pain with radiation to back with associated nausea and vomiting. Symptoms resolved by Sunday. This morning, patient endorses more severe, sharp epigastric pain with radiation to back. Pain made worse with eating. Had 4 episodes of vomiting prior to arrival to ER. No coffee ground emesis. Pain is currently under control. Denies any fever, chills, hematemesis, jaundice , CP, SOB, urinary symptoms or diarrhea. Patient is not . Surgical history includes appendectomy. Physical Exam (per Admitting): General Appearance: + mild distress Head: normocephalic, atraumatic Eyes: normal inspection ENT: hearing grossly normal Neck: supple, no adenopathy, trachea midline Respiratory/Chest: chest non-tender, lungs clear, normal breath sounds, no respiratory distress, no accessory muscle use Cardiovascular: regular rate, rhythm, no murmur, normal peripheral pulses Abdomen/GI: normal bowel sounds, soft, no organomegaly, + tenderness (TTP of epigastric region and RUQ) Back: normal inspection Extremities/Musculoskelatal: normal inspection, no calf tenderness, normal capillary refill, no pedal edema Neurologic/Psych: alert, normal mood/affect, oriented x 3 Skin: normal color (No jaundice observed), warm/dry, no rash Hospital Course This is a 26 year old female with a PMH of gallstones, recently gave here at [facility] about 9 days prior - presents with acute cholecystitis Acute Cholecystitis s/p lap [place] doing well, POD #0 no problems/issues to note today tolerating gatorade clear liquids as per general surgery plan to d/c home if tolerating clears MRCP showed no CBD dilatation FULL CODE Total time spent on discharge = 20 minutes This includes examination of the patient, discharge planning, medication reconciliation, and communication with other providers. Discharge Instructions Please follow-up with Dr. Regalado on May 30 at 12:45PM Activity Recommendations Activity Limitations: as noted below No heavy lifting over 20 pounds for 4 weeks No strenuous activity until cleared by surgeon Walking and light activity is encouraged No submerging incisions underwater for 2 weeks or until healed (no bathing, swimming, or hot tubs) No driving while taking narcotic pain medication or until you are pain free . Instructions / Follow-Up Instructions / Follow-Up Leave dressings on for 4 days and then you may shower, sponge bath and wash hair in meantime Leave steri strips on incisions for 7 days, they may fall off on their own that is okay Follow-up with Dr. Mcmillan in 1-2 weeks, please call office at [phone] to make an appointment
[2017-05-25] MEDS ORDERED: OXYC-57 PO (17:35)
[2017-05-25 18:28] VITALS: BP 116/74; PULSE 68; TEMP 36.9; O2SAT 97
[2017-05-26] MEDS ORDERED: CLINDAMYCIN 600 MG/54 ML D5W IV ONE (06:00)
== END 2017-05-25 19:00 | disposition home or self-care (01) ==
LOC: C.EDB 15:22 → EDBEDREQ 19:52 → ENRESERV 19:56 → C.3E 20:18
PROVIDERS: ADMIT Family Medicine; ATTEND Family Medicine
DX: K80.12 Calculus of gallbladder with acute and chronic cholecystitis without obstruction (principal); O99.63 Diseases of the digestive system complicating the puerperium; Z83.3 Family history of diabetes mellitus